=== PATIENT | female | born 1955 | race Caucasian/White ===

== ENCOUNTER 2021-06-02 07:00 | Day surgery (SDC) | payer MEDICARE, BC ==
[2021-06-01 14:46] LABS: BASOPHILS % (AUTO) 0.2 % (0-1); EOSINOPHILS # (AUTO) 0.2 X10'3 (0-0.9); EOSINOPHILS % (AUTO) 2.1 % (0-6); HEMATOCRIT 36.3 % (35.0-45.0); HEMOGLOBIN 11.6 g/dl (12.0-16.0); LYMPHOCYTES # (AUTO) 2.7 X10'3 (1.1-4.8); LYMPHOCYTES % (AUTO) 33.7 % (21-51); MEAN CORPUSCULAR HEMOGLOBIN 29.1 PG (27.0-31.0); MEAN PLATELET VOLUME 9.3 FL (7.4-10.4); MONOCYTES # (AUTO) 0.5 X10'3 (0-0.9); MONOCYTES % (AUTO) 5.6 % (2-12); NEUTROPHILS # (AUTO) 4.8 X10'3 (1.8-7.7); NEUTROPHILS % (AUTO) 58.4 % (42-75); PLATELET COUNT 190 X10'3 (140-440); RED BLOOD COUNT 3.99 X10'6 (4.20-5.60); RED CELL DISTRIBUTION WIDTH 14.4 % (11.5-14.5); WHITE BLOOD COUNT 8.2 X10'3 (4.5-11.0)
[2021-06-01 14:58] LABS: PARTIAL THROMBOPLASTIN TIME 24 SECONDS (22-32)
[2021-06-01 15:09] LABS: ANION GAP 8 (8-16); BLOOD UREA NITROGEN 17 MG/DL (7-18); BUN/CREATININE RATIO 18.7 (6.6-38.0); CALCIUM 9.9 MG/DL (8.5-10.1); CHLORIDE 107 MMOL/L (99-107); CREATININE 0.91 MG/DL (0.40-0.90); GLUCOSE 95 MG/DL (70-104); SODIUM 145 MMOL/L (135-145); TOTAL CARBON DIOXIDE 29.9 MMOL/L (24-32); eGFR 62 ML/MIN
[2021-06-02] VITALS (11 sets, daily range): BP systolic 120–178; BP diastolic 62–85
[~2021-06-02] VITALS: Ht 167.6 cm; Wt 98.7 kg
[2021-06-02] MEDS ORDERED: LORazepam 0.5 MG tablet PO PRN (07:15)
[2021-06-02] MEDS ORDERED: diphenhydrAMINE 25mg capsule PO PRN (07:15)
[2021-06-02] MEDS ORDERED: normal saline 1,000 ML IV SCH ×2 (07:15→11:00)
[2021-06-02] MEDS ORDERED: LIDOcaine/PRILOcaine 5gm cream TP ONE (07:20)
[2021-06-02] MEDS ORDERED: ATOR40TA72 PO (07:47)
[2021-06-02] MEDS ORDERED: LOVA40TA2 PO (07:47)
[2021-06-02] MEDS ORDERED: TRAZ-256 PO (07:47)
[2021-06-02] MEDS ORDERED: METO25TA6 PO (07:47)
[2021-06-02] MEDS ORDERED: TRIA1TAB5 PO (07:47)
[2021-06-02] MEDS ORDERED: CLOP75TA34 PO (07:47)
[2021-06-02] MEDS ORDERED: ISOS30TA84 PO (07:47)
[2021-06-02] MEDS ORDERED: TROS20TA4 PO (07:52)
[2021-06-02] MEDS ORDERED: FLUO40CA PO (07:52)
[2021-06-02] MEDS ORDERED: [UNRECOGNIZED DRUG - OTHER] (07:56)
[2021-06-02] MEDS ORDERED: POTA99TA21 PO (07:56)
[2021-06-02] MEDS ORDERED: ZINC50TA60 PO (07:56)
[2021-06-02] MEDS ORDERED: TURM500C4 PO (07:56)
[2021-06-02] MEDS ORDERED: nitroGLYCERIN-Tridil 50MG/D5W 250 ML IV ONE (09:15)
[2021-06-02] MEDS ORDERED: verapamil 2.5 mg/ml inj IV ONE (09:15)
[2021-06-02] MEDS ORDERED: midazolam 1 mg/ML 2ml injection ONE (09:15)
[2021-06-02] MEDS ORDERED: iohexol 350 MG/ML 50ML vial IV ONE (09:16)
[2021-06-02] MEDS ORDERED: fentaNYL/PF 50MCG/1 ML 2ML syringe ONE (09:16)
[2021-06-02] MEDS ORDERED: iohexol 350MG/ML 100ml bottle IV ONE ×2 (09:16→10:11)
[2021-06-02] MEDS ORDERED: heparin 1,000unit/ml 10ml vial 10 ML ONE (09:16)
[2021-06-02] MEDS ORDERED: LIDOcaine 1% (10mg/ml)w/preservative injection 20ml MDV ONE (09:16)
[2021-06-02] MEDS ORDERED: hydrALAZINE 20mg/ml inj. IV ONE (10:17)
[2021-06-02 10:41] LABS: ISTAT HGB ART 11.2 g/dl (12.0-16.0); ISTAT Hct ART 33 %PCV (35-48); ISTAT O2 SATURATION ARTERIAL 94 % (95-98); ISTAT SOURCE ART
[2021-06-02 11:23] LABS: ISTAT Hct MIX 30 %PCV (35-48); ISTAT O2 SATURATION MIX VENOUS 70 % (60-80); ISTAT SOURCE VEN
== END 2021-06-02 16:10 | disposition home or self-care (01) ==
LOC: SSTAY O 07:00
PROVIDERS: ATTEND Internal Medicine Cardiovascular Disease
DX: R94.39 Abnormal result of other cardiovascular function study (principal); R53.83 Other fatigue; R06.02 Shortness of breath; I25.10 Atherosclerotic heart disease of native coronary artery without angina pectoris; I25.82 Chronic total occlusion of coronary artery; E78.49 Other hyperlipidemia; G47.30 Sleep apnea, unspecified; I11.0 Hypertensive heart disease with heart failure; I50.9 Heart failure, unspecified; J44.9 Chronic obstructive pulmonary disease, unspecified; I48.0 Paroxysmal atrial fibrillation; E66.9 Obesity, unspecified; Z68.35 Body mass index [BMI] 35.0-35.9, adult; Z98.84 Bariatric surgery status; Z79.01 Long term (current) use of anticoagulants; Z79.899 Other long term (current) drug therapy; Z95.5 Presence of coronary angioplasty implant and graft; Z98.890 Other specified postprocedural states
CPT/HCPCS: 36415; 76937; 80048; 82803; 85014; 85025; 85610; 85730; 93005; 93460; 99152; 99153; C1769; C1894; J0360; J1644; J2001; J2250; J3010; J7030; Q0163; Q9967; A4620; A6258; C1751; J3490

== ENCOUNTER 2021-09-28 05:36 | Day surgery (SDC) | payer MEDICARE, BC ==
[2021-09-20 10:56] LABS: EOSINOPHILS # (AUTO) 0.1 X10'3 (0-0.9)
[2021-09-20 10:58] LABS: BASOPHILS % (AUTO) 0.2 % (0-1); EOSINOPHILS % (AUTO) 1.5 % (0-6); LYMPHOCYTES # (AUTO) 2.5 X10'3 (1.1-4.8); LYMPHOCYTES % (AUTO) 37.2 % (21-51); MEAN CORPUSCULAR HEMOGLOBIN 29.5 PG (27.0-31.0); MEAN CORPUSCULAR HGB CONC 33.6 g/dL (33.0-36.5); MEAN CORPUSCULAR VOLUME 87.8 FL (78-98); MEAN PLATELET VOLUME 8.6 FL (7.4-10.4); MONOCYTES # (AUTO) 0.3 X10'3 (0-0.9); MONOCYTES % (AUTO) 5.1 % (2-12); NEUTROPHILS # (AUTO) 3.7 X10'3 (1.8-7.7); PRE OP HEMATOCRIT 34.8 % (35.0-45.0); PRE OP HEMOGLOBIN 11.7 g/dL (12.0-16.0); PRE OP PLATELET COUNT 182 X10'3 (140-440); RED BLOOD COUNT 3.96 X10'6 (4.20-5.60); RED CELL DISTRIBUTION WIDTH 14.4 % (11.5-14.5)
[2021-09-20 11:12] LABS: ALBUMIN 3.8 G/DL (3.4-5.0); ALBUMIN/GLOBULIN RATIO 1.3 (1.1-1.5); ALKALINE PHOSPHATASE 72 IU/L (46-116); BLOOD UREA NITROGEN 16 MG/DL (7-18); BUN/CREATININE RATIO 18.2 (6.6-38.0); CALCIUM 8.6 MG/DL (8.5-10.1); CHLORIDE 106 MMOL/L (99-107); CREATININE 0.88 MG/DL (0.40-0.90); PRE OP ALT 22 U/L (30-65); PRE OP ANION GAP 7 (8-16); PRE OP AST 14 U/L (10-37); PRE OP BILIRUB, TOTAL 0.8 MG/DL (0.0-1.0); PRE OP GLUCOSE 87 MG/DL (70-104); PRE OP POTASSIUM 4.2 MMOL/L (3.4-5.1); PRE OP SODIUM 141 MMOL/L (135-145); TOTAL CARBON DIOXIDE 27.7 MMOL/L (24-32); TOTAL PROTEIN 6.7 G/DL (6.4-8.2); eGFR 64 ML/MIN
[~2021-09-28] VITALS: Ht 167.6 cm; Wt 99.8 kg
[2021-09-28] VITALS (18 sets, daily range): BP systolic 112–154; BP diastolic 57–97
[~2021-09-28 05:36] MED LIST: CLOP75TA34 PO; DOCUMENT DATE & TIME OF BETA-BLOCKER PO ONE; FLAX100015 PO; FLUO40CA PO; ISOS30TA84 PO; LOVA40TA2 PO; METO25TA6 PO; POTA99TA26 PO; TRAZ-256 PO; TROS20TA4 PO; TURM500C4 PO; ZINC50TA60 PO; acetaminophen 325mg tablet PO ONE; cefazolin/dext.iso 2gm/50ml IV ONE; celeCOXIB 100mg capsule PO ONE; famotidine 20mg tablet PO ONE; gabapentin 300mg capsule PO ONE; metoclopramide 5 mg/ml inj IV ONE; oxyCODONE SR 10mg (sust. release) tab -2 tabs (20mg) PO ONE; ringers solution, lacted 1,000 ML IV SCH; tranexamic acid inj. 1,000 MG in 0.7% saline 100 ML PMX IV ONE; vancomycin 1,500 MG in NS 300ml IV soln IV ONE
[2021-09-28] MEDS ORDERED: LIDOcaine 1% (10mg/ml) 2ml vial ONE (05:58)
[2021-09-28] MEDS ORDERED: bisacodyl 10mg suppository rectal RC PRN (07:10)
[2021-09-28] MEDS ORDERED: HYDROmorphone inj. 0.5 MG/0.5 ML DISP.SYRIN IV PRN (07:10)
[2021-09-28] MEDS ORDERED: acetaminophen 325mg tablet PO PRN (07:10)
[2021-09-28] MEDS ORDERED: HYDROmorphone 1 mg/ml syringe IV PRN (07:10)
[2021-09-28] MEDS: potassium cl 20mEq in 1/2 NS 1,000 ML IV SCH ×3 (07:10→22:49)
[2021-09-28] MEDS ORDERED: magnesium hydroxide 30ml (MOM) UD suspension PO PRN (07:10)
[2021-09-28] MEDS ORDERED: ondansetron/PF 4mg/2ml inj IV PRN ×2 (07:10→09:40)
[2021-09-28] MEDS ORDERED: diphenhydrAMINE 25mg capsule PO PRN ×2 (07:10)
[2021-09-28 07:46] LABS: PRE OP PROTIME 10.7 SECONDS (9.0-12.0)
[2021-09-28] MEDS ORDERED: ketorolac trometh. 30mg/ml inj. ONE (08:38)
[2021-09-28] MEDS ORDERED: cloNIDine hcl/PF 100mcg/ml inj ONE (08:39)
[2021-09-28] MEDS ORDERED: epiNEPHrine 1 mg/ml inj ONE (08:39)
[2021-09-28] MEDS ORDERED: ROPIVAcaine 0.5% (5mg/ml) 30ml vial ONE ×2 (08:39→10:32)
[2021-09-28] MEDS ORDERED: vancomycin 1,000mg inj ONE (08:39)
[2021-09-28] MEDS ORDERED: MIDAZolam 1 MG/ML 5ML VIAL ONE (09:23)
[2021-09-28] MEDS ORDERED: fentaNYL/PF 50MCG/1 ML 2ML syringe ONE (09:23)
[2021-09-28] MEDS ORDERED: morphine 4 MG/ML inj SYRINge IV PRN (09:40)
[2021-09-28] MEDS ORDERED: morphine 2 MG/ML inj. syringe IV PRN (09:40)
[2021-09-28] MEDS ORDERED: ringers solution, lacted 1,000 ML IV SCH (09:40)
[2021-09-28] MEDS ORDERED: ROPIVAcaine 0.2% (10 MG/5 ML) BOLUS INJECTION ADDCANAL PRN (09:40)
[2021-09-28] MEDS ORDERED: meperidine/PF 25mg/ml syringe IV PRN ×3 (09:40)
[2021-09-28] MEDS ORDERED: proCHLORperazine 10 MG/2 ml inj IV PRN (09:40)
[2021-09-28] MEDS: ROPIVAcaine 0.2%/PF PUMP/bolus 545 ML ADDCANAL SCH (09:40)
--- NOTE | 2021-09-28 11:00 | NUR ---
ADMITTED TO PACU FROM OR ACCOMPANIED BY ANESTHESIA. INTIAL PHYSICAL ASSESSMENT DONE AND RECORDED. REPORT RECEIVED FROM ANESTHESIA.
--- NOTE | 2021-09-28 12:00 | NUR ---
PACU DISCHARGE CRITERIA MET, REPORT GIVEN TO FLOOR. DENIES PAIN OR DISCOMFORT. PT IS STABLE AND ADEQUATELY RECOVERED FROM ANESTHESIA. PT HAS STABLE AIRWAY PATENCY, RESPIRATORY FUNCTION TO INCLUDE RESPIRATORY RATE AND O2 SAT. HEART RATE, BLOOD PRESSURE STABLE AND HYDRATION ADEQUATE. MENTAL STATUS IS APPROPRIATE. PAIN AND NAUSEA CONTROLLED. REFER TO PACU SPREADSHEET FOR VITAL SIGNS.
--- NOTE | 2021-09-28 12:06 | NUR ---
Patient in room . I have received report from Rhiannon torres and had the opportunity to ask questions and assume patient care.
[2021-09-28] MEDS: oxyCODONE/APAP 10/325mg tablet PO PRN ×2 (13:44→20:11)
[2021-09-28] MEDS ORDERED: tranexamic acid 1gm/0.7% sal. 100 ML IV ONE (14:00)
[2021-09-28] MEDS: clopidogrel 75mg tablet PO SCH (15:35)
[2021-09-28] MEDS: gabapentin 300mg capsule PO SCH ×2 (15:35→21:53)
[2021-09-28] MEDS: cefazolin/dext.iso 2gm/50ml 50 ML IV SCH ×2 (15:35→23:50)
[2021-09-28] MEDS: atorvastatin 10mg tablet PO SCH (15:35)
[2021-09-28] MEDS: isosorbide mononitrate 30mg tab.SR.24H PO SCH (15:35)
[2021-09-28] MEDS: FLUoxetine 20mg capsule PO SCH (15:36)
[2021-09-28] MEDS: multivitamins, therapeutics tablet PO SCH (15:37)
--- NOTE | 2021-09-28 18:11 | NUR ---
Problems reprioritized. Patient report given, questions answered & plan of care reviewed with Emilee.
[2021-09-28] MEDS ORDERED: VANCOMYCIN 1,500MG inj. 1,500 MG in normal saline 500ml IV soln 300 ML IV ONE (20:00)
[2021-09-28] MEDS: ascorbic acid 500mg tablet PO SCH (20:13)
[2021-09-28] MEDS: sennosides 8.6mg tablet PO SCH (20:14)
[2021-09-28] MEDS: metoprolol tartrate 25mg tablet PO SCH (20:17)
[2021-09-28] MEDS: traZODone 50mg tablet PO SCH (22:42)
--- NOTE | 2021-09-29 01:20 | NUR ---
0100 PT LYING IN BED. PT IS ON CPAP. NO DISTRESS NOTED
[2021-09-29 04:00] VITALS: BP 128/69
[2021-09-29] MEDS: oxyCODONE/APAP 10/325mg tablet PO PRN ×4 (05:50→21:27)
[2021-09-29 06:02] LABS: BASOPHILS % (AUTO) 0.1 % (0-1); EOSINOPHILS # (AUTO) 0.1 X10'3 (0-0.9); EOSINOPHILS % (AUTO) 2.2 % (0-6); HEMATOCRIT 29.6 % (35.0-45.0); HEMOGLOBIN 9.9 g/dl (12.0-16.0); LYMPHOCYTES # (AUTO) 1.3 X10'3 (1.1-4.8); MEAN CORPUSCULAR HEMOGLOBIN 30.2 PG (27.0-31.0); MEAN CORPUSCULAR HGB CONC 33.5 g/dL (33.0-36.5); MEAN CORPUSCULAR VOLUME 90.1 FL (78-98); MEAN PLATELET VOLUME 8.6 FL (7.4-10.4); MONOCYTES # (AUTO) 0.4 X10'3 (0-0.9); MONOCYTES % (AUTO) 6.1 % (2-12); NEUTROPHILS # (AUTO) 4.7 X10'3 (1.8-7.7); NEUTROPHILS % (AUTO) 71.6 % (42-75); PLATELET COUNT 130 X10'3 (140-440); RED BLOOD COUNT 3.28 X10'6 (4.20-5.60); RED CELL DISTRIBUTION WIDTH 14.1 % (11.5-14.5); WHITE BLOOD COUNT 6.6 X10'3 (4.5-11.0)
--- NOTE | 2021-09-29 06:15 | NUR ---
PT RESTING IN BED. NO DSITRESS NOTED. PT HS Q PUMP IN PLACE AT 14ML/HR INFUSING . CALL LIGHT WITHIN REACH
[2021-09-29 06:47] LABS: ANION GAP 7 (8-16); CHLORIDE 105 MMOL/L (99-107); POTASSIUM 4.4 MMOL/L (3.5-5.1); SODIUM 139 MMOL/L (135-145); TOTAL CARBON DIOXIDE 26.7 MMOL/L (24-32)
[2021-09-29 07:00] VITALS: BP 142/67
[2021-09-29] MEDS: potassium cl 20mEq in 1/2 NS 1,000 ML IV SCH ×2 (09:20→12:56)
[2021-09-29] MEDS: isosorbide mononitrate 30mg tab.SR.24H PO SCH (09:21)
[2021-09-29] MEDS: ascorbic acid 500mg tablet PO SCH ×2 (09:21→20:44)
[2021-09-29] MEDS: clopidogrel 75mg tablet PO SCH (09:21)
[2021-09-29] MEDS: metoprolol tartrate 25mg tablet PO SCH ×2 (09:21→20:45)
[2021-09-29] MEDS: multivitamins, therapeutics tablet PO SCH (09:21)
[2021-09-29] MEDS: FLUoxetine 20mg capsule PO SCH (09:22)
[2021-09-29] MEDS: gabapentin 300mg capsule PO SCH ×2 (09:22→13:28)
[2021-09-29] MEDS: atorvastatin 10mg tablet PO SCH (09:22)
[2021-09-29 11:00] VITALS: BP 126/72
--- NOTE | 2021-09-29 14:04 | NUR ---
Pt s/p right TKA. Attempt visit with pt at bedside however pt unavailable working with PT. Written protein education with RD contact information placed in patient's chart. Will remain available. Addendum: 09/29/21 at [address] Amended: Links added.
[2021-09-29] MEDS ORDERED: oxyCODONE/APAP 10/325mg tablet PO ONE (17:50)
--- NOTE | 2021-09-29 17:51 | NUR ---
Frances James [employer] PROCESS MODELER made aware via phone of ineffective pain control with 1 Percocet. TO obtained for 1 time dose of percocet 10 . BUSINESS PROCESS MODELER to consider possible pain med change for d/c
[2021-09-29 19:44] VITALS: BP 136/69
[2021-09-29] MEDS: sennosides 8.6mg tablet PO SCH (20:42)
[2021-09-29] MEDS: celeCOXIB 100mg capsule PO SCH (20:42)
[2021-09-29] MEDS: traZODone 50mg tablet PO SCH (20:44)
[2021-09-29] MEDS ORDERED: gabapentin 100mg capsule PO SCH (21:00)
[2021-09-29] MEDS: ROPIVAcaine 0.2%/PF PUMP/bolus 545 ML ADDCANAL SCH (21:28)
[2021-09-29 23:52] VITALS: BP 153/76
[2021-09-30] MEDS: oxyCODONE/APAP 10/325mg tablet PO PRN ×2 (04:34→08:34)
--- NOTE | 2021-09-30 06:11 | NUR ---
Problems reprioritized. Patient report given, questions answered & plan of care reviewed with Cyril MAYS.
[2021-09-30 06:14] LABS: BASOPHILS % (AUTO) 0.1 % (0-1); EOSINOPHILS # (AUTO) 0.2 X10'3 (0-0.9); EOSINOPHILS % (AUTO) 2.9 % (0-6); HEMATOCRIT 31.5 % (35.0-45.0); HEMOGLOBIN 10.5 g/dl (12.0-16.0); LYMPHOCYTES # (AUTO) 1.3 X10'3 (1.1-4.8); MEAN CORPUSCULAR HGB CONC 33.5 g/dL (33.0-36.5); MEAN CORPUSCULAR VOLUME 89.7 FL (78-98); MEAN PLATELET VOLUME 9.2 FL (7.4-10.4); MONOCYTES # (AUTO) 0.5 X10'3 (0-0.9); MONOCYTES % (AUTO) 6.6 % (2-12); NEUTROPHILS # (AUTO) 5.2 X10'3 (1.8-7.7); NEUTROPHILS % (AUTO) 72.4 % (42-75); PLATELET COUNT 143 X10'3 (140-440); RED BLOOD COUNT 3.51 X10'6 (4.20-5.60); RED CELL DISTRIBUTION WIDTH 14.2 % (11.5-14.5); WHITE BLOOD COUNT 7.1 X10'3 (4.5-11.0)
--- NOTE | 2021-09-30 06:17 | NUR ---
Patient in room [facility]. I have received report from Joel MAYS and had the opportunity to ask questions and assume patient care.
[2021-09-30 07:00] VITALS: BP 156/54
[2021-09-30] MEDS: isosorbide mononitrate 30mg tab.SR.24H PO SCH (07:30)
[2021-09-30] MEDS: multivitamins, therapeutics tablet PO SCH (07:30)
[2021-09-30] MEDS: ascorbic acid 500mg tablet PO SCH (07:30)
[2021-09-30] MEDS: FLUoxetine 20mg capsule PO SCH (07:30)
[2021-09-30] MEDS: clopidogrel 75mg tablet PO SCH (07:30)
[2021-09-30] MEDS: atorvastatin 10mg tablet PO SCH (07:30)
[2021-09-30] MEDS: celeCOXIB 100mg capsule PO SCH (07:30)
[2021-09-30] MEDS: metoprolol tartrate 25mg tablet PO SCH (08:00)
--- NOTE | 2021-09-30 10:29 | NUR ---
Per JUAN Schroeder we do not need to order new OnQ ball prior to discharge. Pharmacy notified
[2021-09-30 11:00] VITALS: BP 159/62
--- NOTE | 2021-09-30 12:20 | NUR ---
Late entry: Discharged patient home, patient verbalized understanding of all instructions made. Peripheral IV catheter removed, tip intact. Instructed patient to ensure she has all her belongings with her before leaving the hospital. Patient was educated about the OnQ ball management including removal of the catheter when the medicine is empty. Instructed patient when to call the surgeon.
== END 2021-09-30 12:20 | disposition home or self-care (01) ==
LOC: PAS 05:36 → SUR 3N 07:11 → PAS 09-30 12:20
PROVIDERS: ATTEND Orthopaedic Surgery
DX: M17.11 Unilateral primary osteoarthritis, right knee (principal); G89.18 Other acute postprocedural pain; I25.10 Atherosclerotic heart disease of native coronary artery without angina pectoris; G47.33 Obstructive sleep apnea (adult) (pediatric); I10 Essential (primary) hypertension; F32.9 Major depressive disorder, single episode, unspecified; E66.9 Obesity, unspecified; Z68.35 Body mass index [BMI] 35.0-35.9, adult; Z79.899 Other long term (current) drug therapy; Z87.891 Personal history of nicotine dependence; Z72.89 Other problems related to lifestyle; Z79.01 Long term (current) use of anticoagulants; Z98.890 Other specified postprocedural states; Z95.5 Presence of coronary angioplasty implant and graft; Z98.84 Bariatric surgery status; Z20.822 Contact with and (suspected) exposure to COVID-19
CPT/HCPCS: 27447; 36415; 64448; 73560; 76937; 80051; 80053; 82948; 85025; 85610; 85730; 86885; 86900; 86901; 87081; 97530; C1713; C1776; J0171; J0690; J0735; J1885; J2250; J2765; J2795; J3010; J3370; J3480; J3490; J7030; J7040; J7120; U0003; U0005; Z7506; Z7508; Z7512; A4215; A7000; G0378

== ENCOUNTER 2023-08-02 15:04 | Emergency (ER) | payer MEDICARE, BC ==
[~2023-08-02] VITALS: Ht 172.7 cm; Wt 90.0 kg
[~2023-08-02 15:04] MED LIST changes: -DOCUMENT DATE & TIME OF BETA-BLOCKER PO ONE; -acetaminophen 325mg tablet PO ONE; -cefazolin/dext.iso 2gm/50ml IV ONE; -celeCOXIB 100mg capsule PO ONE; -famotidine 20mg tablet PO ONE; -gabapentin 300mg capsule PO ONE; -metoclopramide 5 mg/ml inj IV ONE; -oxyCODONE SR 10mg (sust. release) tab -2 tabs (20mg) PO ONE; -ringers solution, lacted 1,000 ML IV SCH; -tranexamic acid inj. 1,000 MG in 0.7% saline 100 ML PMX IV ONE; -vancomycin 1,500 MG in NS 300ml IV soln IV ONE
[2023-08-02] MEDS ORDERED: normal saline 1000ML IV soln IVB ONE (15:20)
[2023-08-02 15:48] VITALS: TEMP 97.8
[2023-08-02 17:02] LABS: BASOPHILS % (AUTO) 0.2 % (0-1); EOSINOPHILS # (AUTO) 0.2 X10'3 (0-0.9); EOSINOPHILS % (AUTO) 2.1 % (0-6); HEMATOCRIT 34.7 % (35.0-45.0); HEMOGLOBIN 11.3 g/dl (12.0-16.0); LYMPHOCYTES # (AUTO) 2.1 X10'3 (1.1-4.8); LYMPHOCYTES % (AUTO) 28.6 % (21-51); MEAN CORPUSCULAR HGB CONC 32.6 g/dL (33.0-36.5); MEAN PLATELET VOLUME 8.7 FL (7.4-10.4); MONOCYTES # (AUTO) 0.4 X10'3 (0-0.9); MONOCYTES % (AUTO) 5.7 % (2-12); NEUTROPHILS # (AUTO) 4.7 X10'3 (1.8-7.7); NEUTROPHILS % (AUTO) 63.4 % (42-75); PLATELET COUNT 177 X10'3 (140-440); RED BLOOD COUNT 3.77 X10'6 (4.20-5.60); RED CELL DISTRIBUTION WIDTH 14.7 % (11.5-14.5); WHITE BLOOD COUNT 7.4 X10'3 (4.5-11.0)
[2023-08-02 17:14] LABS: ALANINE AMINOTRANSFERASE 36 U/L (12-78); ALBUMIN 3.9 G/DL (3.4-5.0); ALBUMIN/GLOBULIN RATIO 1.4 (1.1-1.5); ALKALINE PHOSPHATASE 94 IU/L (46-116); ANION GAP 4 (8-16); ASPARTATE AMINO TRANSFERASE 15 U/L (10-37); BILIRUBIN,TOTAL 0.4 MG/DL (0.1-1.0); BLOOD UREA NITROGEN 18 MG/DL (7-18); BUN/CREATININE RATIO 22.2 (10.0-20.0); CALCIUM 10.5 MG/DL (8.5-10.1); CHLORIDE 104 MMOL/L (99-107); CREATININE 0.81 MG/DL (0.40-0.90); GLUCOSE 102 MG/DL (70-104); POTASSIUM 4.8 MMOL/L (3.5-5.1); SODIUM 139 MMOL/L (135-145); TOTAL CARBON DIOXIDE 31.2 MMOL/L (24-32); TOTAL PROTEIN 6.6 G/DL (6.4-8.2); eCRCL 67 ML/MIN; eGFR 70 ML/MIN
[2023-08-02 18:49] VITALS: BP 167/78; PULSE 56; RESP 14; O2SAT 99
== END 2023-08-02 18:51 | disposition home or self-care (01) ==
LOC: ER 15:04
DX: R55 Syncope and collapse (principal); R41.0 Disorientation, unspecified; R20.0 Anesthesia of skin; I11.0 Hypertensive heart disease with heart failure; Z90.49 Acquired absence of other specified parts of digestive tract; Z79.899 Other long term (current) drug therapy
CPT/HCPCS: 36415; 70450; 71045; 80053; 84484; 85025; 93005; 99285